=== PATIENT | female | born 1945 | race Caucasian/White ===

== ENCOUNTER 2017-01-25 15:17 | Emergency (ER) | payer MEDICARE ==
[2017-01-25 14:08] LABS: BASOPHILS 0.9 %; BASOPHILS ABSOLUTE 0.04 10/3/uL (0.0-0.16); EOSINOPHILS ABSOLUTE 0.18 10/3/uL (0.0-0.53); ER CBC TAT 0 Hrs 03 Mins; IMMATURE GRANULOCYTES 0.2 %; IMMATURE GRANULOCYTES ABSOLUTE 0.01 10/3/uL (0.0-0.11); LYMPHOCYTES 13.4 %; MEAN CORPUS HGB CONC 32.5 g/dL (32.0-36.0); MEAN CORPUSCULAR HEMOGLOB 28.9 pg (26.0-34.0); MEAN PLATELET VOLUME 10.7 fL (9.2-13.0); MONOCYTES 7.8 %; MONOCYTES ABSOLUTE 0.35 10/3/uL (0.21-1.20); NEUTROPHILS 73.7 %; RBC DISTRIBUTION WIDTH 14.6 % (12.0-16.0); WHITE BLOOD CELLS 4.5 10/3/uL (4.5-10.5)
[2017-01-25 14:10] LABS: HEMATOCRIT 33.8 % (36.0-48.0); MANUAL DIFF NO %; MEAN CORPUSCULAR VOLUME 88.7 fL (80-100); PLATELET COUNT 319 10/3/uL (150-400); RED CELL COUNT 3.81 10/6/uL (4.0-5.6)
[2017-01-25 14:16] LABS: INTERNATIONAL NORMAL RATI 1.2 UNITS (-); PARTIAL THROMBO TIME 33.6 SEC (22.5-37.2); PROTIME (NOT ORD) 15.5 SEC (12.0-14.5)
[2017-01-25 14:24] LABS: BUN (BLOOD UREA NITROGEN) 45 MG/DL (6-23); CHEST PAIN PROFILE TAT 0 Hrs 19 Mins; CHLORIDE, SERUM 106 MMOL/L (96-112); CO2 (CARBON DIOXIDE) 23 MMOL/L (24-34); CREATININE 1.09 MG/DL (0.55-1.02); GFR AFRICAN AMERICAN 58 ML/MIN (>=60); GFR NON AFRICAN AMERICAN 50 ML/MIN (>=60); GLUCOSE, SERUM 126 MG/DL (60-99); POTASSIUM, SERUM 4.9 MMOL/L (3.5-5.3); SODIUM, SERUM 138 MMOL/L (135-148); TROPONIN I <0.02 NG/ML (<0.05)
[~2017-01-25 15:17] MED LIST: CALTRA600D PO; ELIQUIS 2.5 MG2.5 MG PO; ELIQUIS 5 MG TAB5 MG PO; HUMALOG SC; HUMALOGPEN SC; IMDUR30 PO; IMDUR60 PO; L40 PO; L80 PO; LANTUS SC; LANTUSCART SC; LEVOTHYROXIN100 MCG PO; LOP25 PO; MAG6464 MG PO; MICRO-K10 MEQ PO; MINOCIN100 PO; MINOCIN50 PO; NIASPAN500 PO; NITROQUICK0.3 MG SL; OXYCODONE PO; P10 PO; P20 PO; P5 PO; PCET PO; PLAVIX PO; PREDNISONE PO; PRIN10 PO; PRIN2.5 PO; RANITIDINE300 MG PO; REG PO; REG5 PO; UBIQUINONE PO; VITD PO; ZANAFLEX 4 MG TA4 MG PO; ZANTAC300 MG PO; [UNRECOGNIZED DRUG - OTHER] PO
== END 2017-01-25 17:01 | disposition home or self-care (01) ==
LOC: ER 15:17
PROVIDERS: Hospitalist
DX: B34.9 Viral infection, unspecified (principal); M79.1 Myalgia; M79.604 Pain in right leg; M79.605 Pain in left leg; I10 Essential (primary) hypertension; I50.9 Heart failure, unspecified; Z95.5 Presence of coronary angioplasty implant and graft; I48.91 Unspecified atrial fibrillation; E11.9 Type 2 diabetes mellitus without complications; D64.9 Anemia, unspecified; E03.9 Hypothyroidism, unspecified; I25.10 Atherosclerotic heart disease of native coronary artery without angina pectoris; Z87.891 Personal history of nicotine dependence; Z88.5 Allergy status to narcotic agent; Z88.2 Allergy status to sulfonamides; Z88.1 Allergy status to other antibiotic agents; Z79.4 Long term (current) use of insulin; Z79.899 Other long term (current) drug therapy
CPT/HCPCS: 71010; 80048; 83735; 83880; 84484; 85025; 85610; 85730; 99284; A9270-GY